=== PATIENT | male | born 1935 | race Hispanic/Latino ===

== ENCOUNTER 2018-08-03 11:12 | Outpatient (CLI) | payer MEDICARE ==
--- NOTE | 2018-08-03 16:14 | Ultrasound Report ---
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 History of right benign biopsy several years ago. COMPARISON:None. FINDINGS: The breasts are mostly fatty. Moderate right subareolar fibroglandular densities in mild left subareolar fibroglandular densities. No mass, architectural distortion or suspicious calcifications. No biopsy clip in the right breast. Ultrasound of of both breasts (including all four quadrants and the retroareolar area) was performed and demonstrated retroareolar fibroglandular densities, right greater than left. No mass or suspicious finding. IMPRESSION: Bilateral benign gynecomastia, right worse than left. BI-RADS CATEGORY: 2 -- Benign RECOMMENDATION: Clinical follow-up. Any decision to biopsy should be based on the clinical findings. COMMENT: Patient follow-up letters are generated by our [employer] application.
== END 2018-08-03 11:13 | disposition home or self-care (01) ==
LOC: MAMMO 11:12
PROVIDERS: ATTEND Internal Medicine
DX: N62 Hypertrophy of breast (principal)
CPT/HCPCS: 77066